=== PATIENT | male | born 1985 | race Caucasian/White ===

== ENCOUNTER 2016-12-04 10:00 | Emergency (ER) | payer MEDICAID ==
[~2016-12-04] VITALS: Ht 180.3 cm; Wt 131.5 kg
[2016-12-04 10:06] VITALS: BP 150/90
== END 2016-12-04 11:12 | disposition home or self-care (01) ==
LOC: ER 10:02
DX: H11.32 Conjunctival hemorrhage, left eye (principal); H10.9 Unspecified conjunctivitis; F17.200 Nicotine dependence, unspecified, uncomplicated
CPT/HCPCS: 99283; A4606; Z7610

== ENCOUNTER 2021-03-25 18:19 | Emergency (ER) | payer SELFPAY ==
[~2021-03-25] VITALS: Ht 182.9 cm; Wt 154.8 kg
--- NOTE | 2021-03-25 18:37 | NUR ---
BIBS FOR C/O MIDSTERNAL CHEST PAIN 5/10 RADIATING TO LEFT ARM C/O SOB. STARTED 0800. TOOK ASPIRIN 81 MG X2 TABS AT 0800. ALERT AND ORIENTED X4. RESPIRATION REGULAR AND UNLABORED. WILL CONTINUE TO MONITOR THE PATIENT.
--- NOTE | 2021-03-25 18:41 | NUR ---
PHLEBATOMIST AT THE BEDSIDE
[2021-03-25 18:45] LABS: BASOPHILS % (AUTO) 0.4 % (0.0-2.0); EOSINOPHILS % (AUTO) 0.8 % (0.0-6.0); HEMATOCRIT 40 % (39-51); HEMOGLOBIN 13.8 g/dL (13.5-17.5); LYMPHOCYTES # (AUTO) 1.7 K/uL (0.8-4.8); LYMPHOCYTES % (AUTO) 21.1 % (20.0-44.0); MEAN CORPUSCULAR HGB CONC 34 g/dl (31.0-36.0); MEAN CORPUSCULAR VOLUME 89 fL (80-96); MONOCYTES # (AUTO) 0.6 K/uL (0.1-1.30); MONOCYTES % (AUTO) 7.6 % (2.0-12.0); NEUTROPHILS # (AUTO) 5.8 K/uL (1.8-8.9); NEUTROPHILS % (AUTO) 70.1 % (43.0-81.0); PLATELET COUNT (AUTO) 208 K/uL (150-450); RED BLOOD CELL COUNT(AUTO) 4.56 MIL/uL (4.5-6.0); WHITE BLOOD COUNT (AUTO) 8.2 K/uL (4.3-11.0)
[2021-03-25 18:54] LABS: CALCIUM, SERUM 8.8 mg/dL (8.5-10.1); CARBON DIOXIDE 28 mmol/L (21-32); CHLORIDE 100 mmol/L (98-107); CREATININE 0.9 mg/dL (0.6-1.3); GLUCOSE 123 mg/dL (74-106); POTASSIUM 3.9 mmol/L (3.5-5.1); SODIUM SERUM 138 mmol/L (136-145); UREA NITROGEN, BLOOD 19 mg/dL (7-18)
--- NOTE | 2021-03-25 19:18 | NUR ---
REPORT GIVEN TO NURSE BRENT FOR JORGE ALBERTO
--- NOTE | 2021-03-25 20:24 | NUR ---
PAPOID SWABBED, SENT TO LAB.
[2021-03-25 22:23] VITALS: BP 138/90
--- NOTE | 2021-03-25 22:23 | NUR ---
Patient discharged to home in stable condition. Written and verbal after care instructions given. Patient verbalizes understanding of instruction.
== END 2021-03-25 22:23 | disposition home or self-care (01) ==
LOC: ER 18:32
DX: R07.2 Precordial pain (principal); Z20.822 Contact with and (suspected) exposure to COVID-19; F17.200 Nicotine dependence, unspecified, uncomplicated; Z82.49 Family history of ischemic heart disease and other diseases of the circulatory system
CPT/HCPCS: 36415; 71045; 80048; 84484 ×2; 85025; 87426; 93005; 99285; C9803